=== PATIENT | male | born 1950 | race Caucasian/White ===

== ENCOUNTER 2016-07-09 18:31 | Emergency (ER) | payer BC, OTHER ==
[2016-07-09 19:01] VITALS: BP 130/69
[2016-07-09] MEDS ORDERED: Fluorescein Sodium TOPICAL* 1 MG TEST ONE (19:04)
[2016-07-09] MEDS ORDERED: BSS OPTH.SOL* BTL ONE (19:04)
[2016-07-09] MEDS ORDERED: Tetracaine 0.5% OPTH.SOL 4 ML* 1 DROP BTL ONE (19:04)
--- NOTE | 2016-07-09 20:28 | UC ---
Eye Complaint HPI - HPI Summary HPI Summary: WALKING DOWN [address]IVE[address]AY, WIND BLEW SOMETHING INTO RIGHT EYE. FLUSHED EYE OUT BUT EYE STILL FEELS IRRITATED. - History of Current Complaint Chief Complaint: UCEye Stated Complaint: RIGHT EYE IRRITATION Time Seen by Provider: 07/09/16 19:04 Hx Obtained From: Patient, Family/Television Parts Tester Onset/Duration: Sudden Onset, Lasting Hours, Still Present Timing: Constant Severity Initially: Mild Severity Currently: Mild Pain Intensity: 2 Pain Scale Used: 0-10 Numeric Location of Injury: Conjunctiva Character: Dull, Foreign Body Sensation Aggravating Factor(s): Nothing Alleviating Factor(s): Nothing Associated Signs And Symptoms: Positive: Drainage (Clear), Vision Impairment Right - MILDLY BLURRY - Risk Factors Penetrating Injury Risk Factor: Negative Globe Rupture Risk Factors: Negative Acute Glaucoma Risk Factors: Negative Optic Artery Occlusion Risk Factors: Negative - Allergies/Home Medications Allergies/Adverse Reactions: Allergies Allergy/AdvReac Type Severity Reaction Status Date / Time Iodinated Contrast Media Allergy Intermediate Shakes Verified 07/09/16 19:01 [IV CONTRAST DYE] Home Medications: Home Medications Dulaglutide [Trulicity] 0.75 mg SC WEEKLY 07/09/16 [History Confirmed 07/09/16] PMH/Surg Hx/FS Hx/Imm Hx Previously Healthy: Yes Endocrine History Of: Reports: Diabetes - non insulin Cardiovascular History Of: Denies: Cardiac Disorders, Hypertension - Surgical History Surgical History: Yes Surgery Procedure, Year, and Place: Appendectomy, 1975, [facility]. right pinky finger tendon release. micro surgery to remove metal from left eye - Family History Known Family History: Positive: Diabetes - Social History Occupation: Employed Full-time Lives: With Family Alcohol Use: None Substance Use Type: None Smoking Status (MU): Never Smoked Tobacco - Immunization History Most Recent Tetanus Shot: maybe 2015 Review of Systems Constitutional: Negative Skin: Negative Eyes: Drainage, Eye Redness ENT: Negative Respiratory: Negative Cardiovascular: Negative Gastrointestinal: Negative Genitourinary: Negative Motor: Negative Neurovascular: Negative Musculoskeletal: Negative Neurological: Negative Psychological: Negative All Other Systems Reviewed And Are Negative: Yes Physical Exam Triage Information Reviewed: Yes Appearance: Well-Appearing, No Pain Distress Vital Signs: Initial Vital Signs Temp 98.3 F 07/09/16 18:56 Pulse 75 07/09/16 18:56 Resp 16 07/09/16 18:56 BP 130/69 03/18/17 18:56 Pulse Ox 98 07/09/16 18:56 Eyes: Positive: Conjunctiva Inflamed, Discharge - CLEAR, Other: - FLUORESCEIN CORNEAL UPTAKE RIGHT EYE FROM 12 OCLOCK TO 7 OCLOCK IN HORZONTAL PATTERN SUGGESTING PARTICULATE/EYE RUBBING INJURY. NO FOREIGN BODY CURRENTLY VISUALIZED ENT Exam: Normal ENT: Positive: Normal ENT inspection, Hearing grossly normal, Pharynx normal, TMs normal Dental Exam: Normal Neck exam: Normal Neck: Positive: Supple, Nontender, No Lymphadenopathy Respiratory Exam: Normal Respiratory: Positive: Chest non-tender, Lungs clear, Normal breath sounds, No respiratory distress Cardiovascular Exam: Normal Cardiovascular: Positive: RRR, No Murmur Abdominal Exam: Normal Musculoskeletal Exam: Normal Neurological Exam: Normal Psychological Exam: Normal Psychological: Positive: Normal Response To Family Skin Exam: Normal Eye Complaint Course/Dx - Differential Dx/Diagnosis Differential Diagnosis/HQI/PQRI: Conjunctivitis, Corneal Abrasion, Foreign Body , Glaucoma Provider Diagnoses: RIGHT CORNEAL ABRASION Discharge - Discharge Plan Condition: Stable Disposition: HOME Prescriptions: Neomycin/Polymy/Dex OPTH.SUSP* [Maxitrol Opth Susp 0.1%*] 1 drop RIGHT EYE TID # 1 bottle Patient Education Materials: Corneal Abrasion (ED) Referrals: Buddy Godwin MD [Primary Care Provider] -
== END 2016-07-09 19:38 | disposition home or self-care (01) ==
LOC: UCCORT 18:31
DX: S05.01XA Injury of conjunctiva and corneal abrasion without foreign body, right eye, initial encounter (principal); X58.XXXA Exposure to other specified factors, initial encounter; Y93.89 Activity, other specified; Y92.412 Parkway as the place of occurrence of the external cause; Z91.041 Radiographic dye allergy status
CPT/HCPCS: 99212; A9270-GY; G0463

== ENCOUNTER 2018-12-21 10:07 | Emergency (ER) | payer MEDICARE ==
--- NOTE | 2018-12-21 10:24 | UC ---
General HPI - HPI Summary HPI Summary: Patient 68-year-old gentleman who states the last 2 days he's had dizziness when he moves his head. Patient states he mostly notices it when he moves the left. Patient states he has had some sinus congestion in the frontal area. No headache. No nausea vomiting. No vision changes. Patient states he had a remote history of vertigo and this feels similar. Patient states he took "motion sickness cold medication yesterday that helped. Patient states symptoms were back today; to get checked. No fevers or chills. Patient denies chest pain or shortness breath. Patient denies slurred speech difficulty with word finding. No paresthesias extremity weaknesses. Patient denies difficulty with balance. Patient's significant other present and agrees with patient's reported symptoms. Patient does report Addy 4 days ago he struck the top of his head very hard when he was getting out of a tractor. Patient takes 81 mg aspirin daily. No loss of consciousness media symptoms at that time. Patient' s other medications reviewed this visit No cardiac hx, no TIA/CVA - History of Current Complaint Stated Complaint: DIZZY,NUMBNESS IN HEAD Time Seen by Provider: 12/21/18 10:10 Hx Obtained From: Patient Onset/Duration: Gradual Onset - Allergy/Home Medications Allergies/Adverse Reactions: Allergies Allergy/AdvReac Type Severity Reaction Status Date / Time Iodinated Contrast Media Allergy Unknown Shakes Verified 12/21/18 11:37 Home Medications: Home Medications Motion Sickness Med 1 tab PO PRN 12/21/18 [History] Sitagliptin Phosphate [Januvia] 25 mg PO 12/21/18 [History] PMH/Surg Hx/FS Hx/Imm Hx Previously Healthy: Yes - Surgical History Surgical History: Yes Surgery Procedure, Year, and Place: Appendectomy, 1975, [facility]. right pinky finger tendon release. micro surgery to remove metal from left eye - Family History Known Family History: Positive: Diabetes - Social History Occupation: Employed Full-time Lives: With Family Alcohol Use: None Substance Use Type: None Smoking Status (MU): Never Smoked Tobacco - Immunization History Most Recent Tetanus Shot: maybe 2015 Review of Systems All Other Systems Reviewed And Are Negative: Yes Constitutional: Positive: Negative Skin: Positive: Negative Eyes: Positive: Negative ENT: Positive: Sinus Pain/Tenderness - pressure Respiratory: Positive: Negative Cardiovascular: Positive: Negative Gastrointestinal: Positive: Negative Genitourinary: Positive: Negative Motor: Positive: Negative Neurovascular: Positive: Negative Neurological: Positive: Other - dizziness Physical Exam - Summary Physical Exam Summary: Vital Signs Reviewed: Yes A+Ox3, no distress Eyes: Conjunctiva Clear, RICHARD. EOM intact and full, 2 beat mild symptomatic nystagmus to left ENT: Hearing grossly normal TM x 2 clear, turbinates inflammed mild TTP frontal and max sinuses, mmoist, uvula midline, no exudate, no erythema Neck: Positive: Supple, no bruits Respiratory: Positive: No respiratory distress, No accessory muscle use + CTA throughout no w/r Cardiovascular: RRR nl s1, s2 no m/r CBT <2 sec, no bruits, no temporal artery pain abd soft + BS nt/nd no guarding, no distension Musculoskeletal Exam: ESTEVEZ x 4 without difficulty Strength Intact, ROM Intact Neurological: Positive: Alert, + sensation throughout Psychological: Positive: Normal Response To cleaners Skin: Positive: no rash, no ecchymosis CN 2-12 intact and full - left sided nystagmus, Horizontal - extinguishing + FNF b/l + heel/haro b/l 5/5 abduction, flex/ext elbow, wrist against resistant 5/5 SLE, flex/ext knee, ankle + great toe extension + gross sensation throughout ambulatry without difficulty no difficulty with wording finding or speech Triage Information Reviewed: Yes Diagnostics - Radiology No standard instances Radiology Interpretation Completed By: Radiologist - Patient Name: CHENG CH Medical Record#: [id number] Ordering Physician: Cris Daigle MD Acct.#: [id number] : 1950 Age: 68 Sex: M Location: [facility] Exam Date: 12/21/18 1041 ADM Status: PRE ER Order Information: CT BRAIN WO Accession Number: [id number] CPT: 45480 INDICATION: Head injury. COMPARISON: There are no relevant prior studies available for comparison. TECHNIQUE: Contiguous axial sections of the brain were obtained from the skull base to the vertex without contrast. FINDINGS: There is no hemorrhagic focus, mass effect or midline shift. The mills -white matter differentiation is grossly maintained without abnormal cerebral edema. Periventricular hypoattenuation, without mass effect, is nonspecific. The ventricles are of conventional size and configuration. The basal cisterns are patent. There is no abnormal extra axial collection. The globes and orbits are symmetric. The paranasal sinuses and mastoid air cells are predominantly well aerated. There is moderate rightward deviation of the bony nasal septum IMPRESSION: 1. No acute intracranial abnormality. 2. Mild chronic small vessel ischemic disease is likely. <Electronically signed by Eric Cochran MD in OV> 12/21/18 1114 Dictated By: Eric Cochran MD Dictated Date/Time: 12/21/18 110 Transcribed Date/Time: 12/21/181108 Copy to: CC:Cris Daigle MD; Buddy Godwin MD Imaging - [facility] Imaging - [facility] [address] [address] ph ([phone]) ph ([phone]) ph ) This report is only to be considered final once signed by the Provider(s) as displayed in the "<Electronically Signed by >" field (s). Absence of a signature indicates the report is in a draft status and still needs to be finalized. In the event this document was created by someone other than the signing Provider, the individual initiating the document will be listed in the "Entered by:" or "Dictated by:" garsia. 1 of 1 - EKG Cardiac Rate: NL Cardiac Rhythm: Sinus: Normal Ectopy: None ST Segment: Normal Re-Evaluation - Re-Evaluation First Eval Comment: Reviewed CT scan with patient. No acute findings. Patient states his dizziness is markedly improved following the meclizine. We'll discharge home with a prescription for antibiotics, Flonase as well as meclizine. Recommend contact PCP for follow-up. Patient comfortable in agreement with plan. Course/Dx - Course Course Of Treatment: Patient presents to urgent care reporting dizziness for the last 48 hours. Patient states it's worse when he looks to the left. Or when he changes position. Patient denies nausea. Patient does report mild frontal MSAs sinus pressure. Patient with a history of vertigo and states this feels similar. No chest pain shortness of breath or abdominal pain. On exam vital signs are stable with mildly elevated blood pressure which is baseline. Patient with nystagmus noted to the left that is horizontal nystagmus. Patient without any other focal findings. Patient does have a little bit of tenderness over his frontomaxillary sinus with palpation as well. Given the fact the patient did strike his head approximately 4 days ago getting off of a tractor we'll do a CT scan. Will give patient meclizine post reassessment. EKG was non-concerning for acute process. If patient's symptoms do not improve with any others findings will likely transfer patient reemerged primary for further evaluation. Patient and his significant other comfortable in agreement with plan. - Diagnoses Provider Diagnosis: Vertigo Discharge ED - Sign-Out/Discharge Documenting (check all that apply): Patient Departure All imaging exams completed and their final reports reviewed: Yes - Discharge Plan Condition: Stable Disposition: HOME Prescriptions: Amoxicillin PO (*) [Amoxicillin 500 MG CAP*] 500 mg PO Q12H #20 cap Fluticasone NASAL SPRAY 50MCG* [Flonase NASAL SPRAY 50MCG*] 2 spray BOTH NARES DAILY #1 btl Meclizine TAB* [Antivert 12.5 TAB*] 25 mg PO Q8HR #15 tab Patient Education Materials: Sinusitis (ED), Vertigo (DC) Referrals: Buddy Godwin MD [Primary Care Provider] - Additional Instructions: - Stay well hydrated. Drink plenty of non-alcoholic, non-caffinated beverages - Take meclizine as prescribed today and tomorrow, then as needed - use nasal spray daily as prescribed - take antibiotics as prescribed - Cotnact your doctor today to schedule a follow-up appointment early next week If you develop fever, slurred speech, headache, nausea, weakness, facial weakness or ANY Other concerns it is recommended you dial 911 and go to the emergency department - Billing Disposition and Condition Condition: STABLE Disposition: Home
[2018-12-21] MEDS ORDERED: Meclizine TAB* 12.5 MG PO ONE (10:42)
[2018-12-21 11:48] VITALS: BP 138/73
--- OUTSIDE RECORDS SUMMARY | 2018-12-21 11:51 | XMS REPORT | Summary of Care ---
:1950 Author Organization [facility] Address [address] [facility] ALIREZA [place] [address] Care Team Providers Name Role Phone Buddy Godiwn MD Primary Care Provider Reason for Visit Reason Comments Low Back Pain Encounter Details Date Type Department Care Team Description 12/11/2018 Office Visit [facility] - Suyapa Casillas, PT Chronic right-sided [place] Physical [facility] [place] [address] sciatica (Primary Dx) 10 [facility] [phone] [address] [place] [address] Allergies Active Allergy Reactions Severity Noted Date Comments Dye Intravenous Radiographic Other 07/18/2018 Shakes, vomiting, etc. Imaging Contrast documented as of this encounter (statuses as of 12/11/2018) Medications Medication Sig Dispensed Refills Start Date End Date Status Naproxen Sodium (ALEVE Take by mouth. 0 Active PO) glyBURIDE (DIABETA) 5 MG Take 5 mg by 0 Active Oral Tab mouth TWICE DAILY. aspirin 81 MG Oral Chew Take 81 mg by 0 Active Tab mouth DAILY. Tamsulosin HCl (FLOMAX) Take 0.4 mg by 0 Active 0.4 MG Oral Cap mouth DAILY. Rosuvastatin Calcium Take by mouth 0 Active (CRESTOR) 20 MG Oral Tab DAILY. documented as of this encounter (statuses as of 12/11/2018) Active Problems Problem Noted Date Pain in joint involving right pelvic region and thigh 11/15/2018 Sacroiliitis 08/28/2018 Spinal stenosis of lumbar region with neurogenic claudication 07/18/2018 documented as of this encounter (statuses as of 12/11/2018) Social History Tobacco Use Types Packs/Day Years Used Date Never Smoker Smokeless Tobacco: Never Used Alcohol Use Drinks/Week oz/Week Comments Never Alcohol Habits Answer Date Recorded How often do you have a drink containing alcohol? Never 07/18/2018 How many drinks containing alcohol do you have on a typical Not asked day when you are drinking? How often do you have six or more drinks on one occasion? Not asked Sex Assigned at Date Recorded Not on file Job Start Date Occupation Industry Not on file Not on file Not on file Travel History Travel Start Travel End No recent travel history available. documented as of this encounter Last Filed Vital Signs Not on filedocumented in this encounter Progress Notes Suyapa Casillas, PT - 12/11/2018 5:00 PM EDT [facility] Treatment Note Outpatient Physical [facility] [address] [place] [id number] Treatment Number: 3 Referring Physician: Ramo Mendieta Primary Diagnosis: ICD-9-CM ICD-10-CM 1. Chronic right-sided low back pain without sciatica 724.2 M54.5 338.29 G89.29 Time In: 1700 Time Out: 1730 Pain at Start of Care: 08/01 Pain at End of Care: 07/01 Subjective Comments: He may be feeling slightly looser but still waking up at night with pain Interventions: Therapeutic Exercises (58713) Number of Exercises?: 6 Total Minutes (all Therapeutic Exercise): 30 Exercise #1 Exercise Name: supine knee bent rotation Reason for Exercise: Functional Mobility;Pain Control Location/Body Area: LE;Trunk Details: legs falling to left > right pain Exercise #2 Exercise Name: supine TrA Reason for Exercise: Strengthening;Muscle Performance Location/Body Area: Trunk Exercise #3 Exercise Name: supine TrA+ bridge Reason for Exercise: Strengthening;Functional Mobility Location/Body Area: Trunk Exercise #4 Exercise Name: standing adductor stretch Reason for Exercise: Functional Mobility;Pain Control Location/Body Area: LE;Trunk Exercise #5 Exercise Name: seated hamstring stretch Reason for Exercise: Functional Mobility;Pain Control Location/Body Area: LE;Trunk Assessment: He was able to do the TrA+bridge but lower than full bridge. He was tight in the adductors and the hamstrings but was able to do the stretches. Given written instructions for full HEP and will try these for a week Plan for Next Visit: Assess gains. Total UNTIMED Code Treatment Minutes: Total TIMED Code Treatment Minutes: 30 Total Treatment Minutes: 30 Author: Suyapa Casillas, PT 12/11/2018 17:16 documented in this encounter Plan of Treatment Date Type Specialty Care Team Description 12/26/2018 Office Visit Physical Therapy Suyapa Casillas, PT [address] [place] [address] [phone] Health Maintenance Due Date Last Done Comments MEDICARE ANNUAL WELLNESS VISIT 1950 DEPRESSION SCREENING 1962 HIV SCREENING 1965 DIABETES SCREENING 1968 HEPATITIS C SCREENING 1990 COLONOSCOPY SCREENING 2000 ZOSTER IMMUNIZATION SERIES (1 of 2000 2) FALL RISK ASSESSMENT 10/01/2015 PNEUMOCOCCAL 65+YRS (1 of 2 - 10/01/2015 PCV13) INFLUENZA VACCINE (#1) 2018 LIPID DISORDER SCREENING 09/27/2023 09/26/2018 HPV IMMUNIZATION SERIES Aged Out No longer eligible based on patient's age to complete this topic MENINGOCOCCAL VACCINE IMM Aged Out No longer eligible based on patient's age to complete this topic documented as of this encounter Results Not on filedocumented in this encounter Visit Diagnoses Diagnosis Chronic right-sided low back pain without sciatica - Primary documented in this encounter Insurance Payer Benefit Plan / Subscriber ID Effective Dates Phone Address Type Group AETNA MEDICARE AETNA MEDICARE xxxxxxxx 2018-Present [employer] ADVANTAGE ADVANTAGE documented as of this encounter
--- OUTSIDE RECORDS SUMMARY | 2018-12-21 11:51 | XMS REPORT | Continuity of Care Document ---
:1950 External Reference #:[id number] Author Name ALIREZA Garsia (transmitted by agent of provider Tomeka Tejeda) Address [address] [place] [address] Problems Active Problems Provider Date Benign prostatic hypertrophy with outflow obstruction Onset: 04/04/2018 Obesity Onset: 06/04/2015 Low back pain Onset: 03/22/2011 Type 2 diabetes mellitus Onset: 03/22/2011 Hyperlipidemia Onset: 03/22/2011 Constipation Onset: 03/22/2011 Benign essential hypertension Onset: 03/22/2011 Gastroesophageal reflux disease Onset: 03/22/2011 Benign neoplasm of colon Onset: 03/22/2011 Chronic nonalcoholic liver disease Onset: 03/22/2011 Peripheral vascular disease Onset: 03/22/2011 Plantar fascial fibromatosis Onset: 03/22/2011 Essential hypertension Onset: 03/22/2011 Idiopathic peripheral neuropathy Onset: 03/22/2011 Palpitations Onset: 03/22/2011 Social History Type Date Description Comments Sex Unknown ETOH Use Rarely consumes alcohol Tobacco Use Start: Unknown Patient has never smoked Recreational Drug Use Never Used Drugs Smoking Status Reviewed: 12/19/18 Patient has never smoked Exercise Type/Frequency Exercises rarely Allergies, Adverse Reactions, Alerts Active Allergies Reaction Severity Comments Date Invokana urinary retention 07/26/2018 Victoza stomach cramps/ inj site react 07/26/2018 Bydureon inj site issue/ intolerance 07/26/2018 Dapagliflozin Propanediol Diarrhea, intolerance 07/26/2018 Metformin Abdominal pain, Diarrhea, 07/26/2018 Nausea Inactive Allergies NKDA 07/26/2018 Medications Active Medications SIG Qnty Indications Ordering Provider Date Januvia one pill daily 30tabs Buddy 09/19/2018 100mg Tablets MD Tato Aspirin Adult Low 1 by mouth every 30tabs Buddy 05/18/2017 Dose day MD Tato 81mg Tablets DR Marlenyntac 1 poqhs 30tabs K21.9 Buddy 03/21/2016 300mg Tablets MD Tato Glyburide Take Two Tablets 120tabs Buddy 08/31/2015 5mg Tablets By Mouth Twice A MD Tato Day Flomax one daily 30caps N32.9 Buddy 06/04/2015 0.4mg Capsules MD Tato Gabapentin 1 pill by mouth 90caps G60.9 Buddy 10/28/2014 300mg every three MD Tato Capsules times a day Crestor 1 by mouth every 90tabs Buddy 20mg Tablets day MD Tato History Medications Januvia 1 by mouth 90tabs E11.9 Buddy Tato, 07/26/2018 - 50mg every day 09/19/2018 Tablets Immunizations CPT Code Status Date Vaccine Reaction Lot # [id number] Given 09/18/2018 Tdap - risk & benefits Tdap C7734 private Tetanus/Diptheria/Ac discussed ellular Pertussis 37062 Given 02/15/2018 Fluzone High Dose 83873 Given 11/08/2013 Zoster (Zostavax) 45694 Given 02/06/2012 Influenza Virus 3Yrs & Over Vital Signs Date Vital Result Comment 12/19/2018 1:04pm Weight 276.44 lb BP Systolic Sitting 120 mmHg BP Diastolic Sitting 50 mmHg 09/18/2018 2:37pm Height 67 inches 5'7" Weight 277.19 lb BP Systolic Sitting 110 mmHg BP Diastolic Sitting 60 mmHg Respiratory Rate 14 /min Body Temperature 98.8 F BMI (Body Mass Index) 43.4 kg/m2 Results Description No Information Available Procedures Date Code Description Status 09/18/2018 03999 EKG Tracing & Interpretation Completed 02/22/2016 533995305 Diabetic Retinal Eye Exam Completed 10/14/2010 71936331 Colonoscopy Completed Medical Devices Description No Information Available Encounters Type Date Location Provider Dx Diagnosis Office Visit 09/18/2018 [facility] ALIREZA Garsia Z00.01 Encounter for 2:30p general adult medical exam w abnormal findings E11.9 Type 2 diabetes mellitus without complications M54.5 Low back pain N40.1 Benign prostatic hyperplasia with lower urinary tract symp Z23 Encounter for immunization Office Visit 07/26/2018 1:00p [facility] ALIREZA Garsia E11.9 Type 2 diabetes Care mellitus without complications E78.5 Hyperlipidemia, unspecified M54.5 Low back pain M54.16 Radiculopathy, lumbar region Assessments Date Code Description Provider 12/19/2018 Z01.419 Encounter for gynecological examination (general) ALIREZA Garsia (routine) without abnormal findings 12/19/2018 E11.9 Type 2 diabetes mellitus without complications ALIREZA Garsia 12/19/2018 M54.5 Low back pain ALIREZA Garsia 12/19/2018 N40.1 Benign prostatic hyperplasia with lower urinary ALIREZA Garsia tract sympto 12/19/2018 E78.5 Hyperlipidemia, unspecified ALIREZA Garsia 09/18/2018 Z00.01 Encounter for general adult medical examination with ALIREZA Garsia abnorma 09/18/2018 E11.9 Type 2 diabetes mellitus without complications ALIREZA Garsia 09/18/2018 M54.5 Low back pain ALIREZA Garsia 09/18/2018 N40.1 Benign prostatic hyperplasia with lower urinary ALIREZA Garsia tract sympto 09/18/2018 Z23 Encounter for immunization ALIREZA Garsia 07/26/2018 E11.9 Type 2 diabetes mellitus without complications ALIREZA Garsia 07/26/2018 E78.5 Hyperlipidemia, unspecified ALIREZA Garsia 07/26/2018 M54.5 Low back pain ALIREZA Garsia 07/26/2018 M54.16 Radiculopathy, lumbar region ALIREZA Garsia Plan of Treatment Future Appointment(s):03/18/2019 1:00 pm - ALIREZA Garsia at [facility] - Marlene Reno PAZ01.419 Encounter for gynecological examination (general ) (routine) without abnormal kzztvymtJ68.9 Type 2 diabetes mellitus without complicationsNew Labs:Basic Metabolic Panel, Ordered: 12/19/18Hemoglobin A1c ( Glyco HGB), Ordered: 12/19/18M54.5 Low back painN40.1 Benign prostatic hyperplasia with lower urinary tract hmrmfwC41.5 Hyperlipidemia, unspecified Functional Status Description No Information Available Mental Status Description No Information Available Referrals Description No Information Available
--- OUTSIDE RECORDS SUMMARY | 2018-12-21 11:51 | XMS REPORT | Summary of Care ---
:1950 Author Organization [facility] Address [address] [facility] [place] [address] Care Team Providers Name Role Phone Buddy Godwin MD Primary Care Provider Reason for Visit Reason Comments Low Back Pain Encounter Details Date Type Department Care Team Description 12/05/2018 Office Visit [facility] - Suyapa Casillas, PT Chronic right-sided [place] [facility] low [place] [address] sciatica (Primary Dx) [address] [facility] [phone] [place] [address] Allergies Active Allergy Reactions Severity Noted Date Comments Dye Intravenous Radiographic Other 07/18/2018 Shakes, vomiting, etc. Imaging Contrast documented as of this encounter (statuses as of 12/05/2018) Medications Medication Sig Dispensed Refills Start Date [...] as of this encounter (statuses as of 12/05/2018) Active Problems Problem Noted Date Pain in joint involving right pelvic region and thigh 11/15/2018 Sacroiliitis 08/28/2018 Spinal stenosis of lumbar region with neurogenic claudication 07/18/2018 documented as of this encounter (statuses as of 12/05/2018) Social History Tobacco Use Types Packs/Day Years [...] encounter Progress Notes Suyapa Casillas, PT - 12/05/2018 2:30 PM EDT [facility] Treatment Note Outpatient Physical Therapy Services [facility] [address] [place] [id number] Treatment Number: 2 Referring Physician: Cj Reaves Primary Diagnosis: ICD-9-CM ICD-10-CM 1. Chronic right-sided low back pain without sciatica 724.2 M54.5 338.29 G89.29 Time In: 1430 Time Out: 1500 Pain at Start of Care: 3 Pain at End of Care: 06/03 Subjective Comments: He is standing up straighter. He is still having pain getting out of bed. Interventions: Therapeutic Exercises (24113) Number of Exercises?: 4 Total Minutes (all Therapeutic Exercise): 20 Exercise #1 Exercise Name: supine knee bent rotation Reason for Exercise: Functional Mobility;Pain Control Location/Body Area: LE;Trunk Details: legs falling to left > right pain Exercise #2 Exercise Name: supine TrA Reason for Exercise: Strengthening;Muscle Performance Location/Body Area: Trunk Exercise #3 Exercise Name: standing hip flexor Reason for Exercise: Functional Mobility;Pain Control Location/Body Area: Trunk Exercise #4 Exercise Name: standing quad stretch Reason for Exercise: Functional Mobility;Pain Control Location/Body Area: LE;Trunk Manual Therapy (17244) Joint Mobilization: iliopsoas release Joint Mobilization Details: right tighter than left. Total Minutes (All Manual Therapy): 10 Assessment: Gave him another option for sleeping position with block under legs so back is in flexion and did iliopsoas release in this position. Right leg is tighter with all the stretches. Given all stretches but only to do hip and quad. Plan for Next Visit: Review stretches add hams and adductor, check TrA Total UNTIMED Code Treatment Minutes: Total TIMED Code Treatment Minutes: 30 Total Treatment Minutes: 30 Author: Suyapa Casillas, PT 12/05/2018 15:10 documented in this encounter Plan of Treatment Date Type Specialty Care Team Description 12/11/2018 Office Visit Physical Therapy Suyapa Casillas, PT [address] [place] [address] [phone] 12/26/2018 Office Visit Physical Therapy Suyapa Casillas, PT [address] [place] [address] [phone] Health Maintenance Due Date Last Done Comments [...]
== END 2018-12-21 11:50 | disposition home or self-care (01) ==
LOC: UCCORT 10:07
DX: R42 Dizziness and giddiness (principal)
CPT/HCPCS: 70450; 93005; 99212; A9270-GY; G0463